=== PATIENT | female | born 1995 | race Caucasian/White ===

== ENCOUNTER 2024-10-27 13:55 | Emergency (ER) | payer OTHER, SELFPAY ==
[2024-10-27 13:55] VITALS: BMI 22.6
[2024-10-27 14:02] VITALS: BP 108/71
[2024-10-27 14:22] LABS: % Basophils 0.3 % (0-2); % Eosinophils 1.1 % (0-6); % Immature Granulocytes 0.3 % (0-0.5); % Lymphocytes 28.9 % (20.5-51.1); % Monocytes 5.8 % (1.7-9.3); % Neutrophils 63.6 % (42.2-75.2); Absolute Eosinophils 0.1 10^3/uL (0-0.7); Absolute Lymphocytes 2.5 10^3/uL (1.2-3.4); Absolute Monocytes 0.5 10^3/uL (0.1-0.6); Absolute Neutrophils 5.5 10^3/uL (1.4-6.5); Hematocrit 43.8 % (37.0-47.0); Hemoglobin 14.6 g/dL (12.0-16.0); Mean Corp Hgb Conc. 33.3 g/dL (33.0-37.0); Mean Corpuscular Hgb 29.7 pg (27.0-31.0); Mean Corpuscular Volume 89.2 fL (81.0-99.0); Nucleated Red Blood Cells % 0 %; Platelet Count 208 10^3/uL (130-400); Red Blood Cell Count 4.91 10^6/uL (4.20-5.40); Red Cell Dist. Width 12.1 % (11.5-14.5); White Blood Cell Count 8.7 10^3/uL (4.8-10.8)
[2024-10-27 14:31] LABS: ALT (SGPT) 19 U/L (0-35); AST (SGOT) 19 U/L (14-36); Albumin 4.9 g/dl (3.5-5.0); Alkaline Phosphatase 59 U/L (38-126); Blood Urea Nitrogen 11 mg/dl (7-17); Calcium 9.9 mg/dl (8.4-10.2); Carbon Dioxide 24 mmol/L (22-30); Chloride 102 mmol/L (98-107); Glucose 110 mg/dl (70-99); Sodium 137 mmol/L (135-145); Total Bilirubin 0.6 mg/dl (0.2-1.3); Total Protein 7.8 g/dl (6.3-8.2); eGFR > 60.00
[2024-10-27 15:52] VITALS: BP 102/74
--- NOTE | 2024-10-27 16:23 | ED.GENMED ---
History of Present Illness
General
Chief Complaint: Vaginal Bleeding
Source: patient
Time Seen by Provider: 10/27/24 15:28
History of Present Illness
History of Present Illness:
29-year-old female, , estimates to be approximately 7 weeks , last menstrual period September 06 presenting to the emergency department for evaluation after last night she started to experience increased abdominal cramping and vaginal
bleeding with small clots, mild bleeding today prompting her to come to the ER for further evaluation. Patient has not been seen by [facility] for this yet. Denies any urinary symptoms, fevers or any other concerns.
Past History
Past History
ED Past Medical History: None
ED Past Surgical History: None
Social History
Tobacco: Non-smoker
Alcohol: None
Drug: None
Personal:
Living: with family
Review of Systems
Review of Systems
All Other Systems: ROS reviewed and negative except as documented in HPI and ROS
Phy Exam
Physical Exam
Physical Exam:
GENERAL: Alert , in no apparent distress
EYE: conjunctiva clear
Head: Normocephalic atraumatic
NECK: Supple,
ENT: mmm.
LUNGS: no acute respiratory distress
ABDOMEN: no focal ttp
NEUROLOGICAL: Alert and oriented
SKIN: Warm and dry, skin intact.
MUSCULOSKELETAL: well perfused.
PSYCH: Normal and appropriate interaction.
Scores
Heart Failure Risk
Heart Failure Risk Score: Not Applicable
Heart Score for Chest Pain Patients
STEMI patient?: Not applicable
Withdrawal Assessment of Alcohol
Withdrawal Assessment Completed?: Not applicable
Course
Orders/Labs/Results
Orders:
Orders
10/27/24 14:06
US W Transvaginal Urgent
Reason For Exam: pain, bleeding
10/27/24 14:10
Beta HCG Quantitative Urgent
Is this a screen?: No
Complete Blood Count/With Diff Urgent
Comprehensive Metabolic Panel Urgent
Abnormal Lab Results
10/27/24
14:10
MPV 12.0 H fL
(7.4-10.4)
Creatinine 0.5 L mg/dL
(0.6-1.0)
Glucose 110 H mg/dl
(70-99)
10/27/24 14:10
10/27/24 14:10
Vital Signs
Initial and Last Documented VS:
Initial Vital Signs
Temp Pulse Resp BP Pulse Ox
97.6 F 98 16 108/71 100
10/27/24 14:02 10/27/24 14:02 10/27/24 14:02 10/27/24 14:02 10/27/24 14:02
Last Documented Vital Signs
Temp Pulse Resp BP Pulse Ox
98 F 89 16 112/76 99
10/27/24 15:52 10/27/24 16:50 10/27/24 16:50 10/27/24 16:50 10/27/24 16:50
MDM/Problems Addressed
Differential Diagnosis Includes:
Threatened , incomplete , ectopic , implantation bleeding
MDM/Problems Addressed:
29-year-old female presenting to the ER for evaluation after she started experiencing vaginal bleeding/clot formation yesterday evening accompanied with some abdominal cramping. Patient believes herself to be approximately 7 weeks . No
[facility] care to date. Hemodynamically stable. Labs and ultrasound imaging ordered in triage. Patient is otherwise hemodynamically stable. Disposition pending.
*Radiology
Radiology exam reviewed: radiology read reviewed
*Pulse Oximetry
Patient hypoxic: no
*Critical Care Note
Total Time (30-74mins, 75-104mins- exclusive of procedures): Not Applicable
Patient Management
Discussion with other providers: Personal Attendant
Escalation/DeEscalation of care consider admission/obs:
Patients US shows single live IUP with cardiac activity however patient has bradycardia. Discussed with reduction plant supervisor OB who agrees patient needs repeat HCG in 48 hours and should have another US performed in a few weeks. Patient to return to ED for
HCG draw since will be Wednesday. Advised on return precautions to ED sooner. Patient expressed understanding
ED Attending Note
-
Portions of this chart may have been created with voice recognition software.� Occasional wrong word or��sound alike� substitutions may have occurred due to the inherent limitations of voice recognition software.
Discharge Plan
Departure
Patient Disposition: Home (Routine Discharge)
Date of Disposition: 10/27/24
Time of Disposition: 16:46
Patient with high blood pressure during this ER visit?: No
Discharge Problem:
, threatened
Instructions: Threatened Miscarriage (DC)
Prescriptions:
No Action
No Current Medications
0
Activity Restrictions/Additional Instructions:
Please return to ED on Wednesday for repeat HCG level
Interventions
Interventions:
*Risk Screen - Suicide Last Done: 10/27/24 14:02
*General Assessment Last Done: 10/27/24 14:02
*Neglect/Abuse Screening Last Done: 10/27/24 15:49
ED- Fall Risk Assessment Last Done: 10/27/24 15:49
*ED COVID-19 Vaccine History Last Done: 10/27/24 14:02
*Nursing Disposition Last Done: 10/27/24 16:50
ED-Female Genitourinary Assessment Last Done: 10/27/24 15:49
Discharge Date and Time
Discharge Date/Time: 10/27/24 16:50
Print Language: GHANAIAN
[2024-10-27 16:50] VITALS: BP 112/76
== END 2024-10-27 16:50 | disposition home or self-care (01) ==
LOC: EMR 13:55
PROVIDERS: Emergency Medicine; EMERGENCY PHYSICIAN Emergency Medicine; FAMILY PHYSICIAN Internal Medicine
DX: O20.0 Threatened abortion (principal); Z3A.01 Less than 8 weeks gestation of pregnancy
CPT/HCPCS: 99284; 76801; 76817; 80053; 84702; 85025